=== PATIENT | female | born 1970 | race Two or more races ===

== ENCOUNTER 2022-10-12 19:16 | Observation (INO) | payer OTHER ==
[2022-10-12] MEDS ORDERED: SODIUM CHLORIDE 1,000 ML IV SCH (20:00)
[2022-10-12 20:06] LABS: BASO % 0.7 % (0-2.0); EOS % 0.3 % (0-4.5); HEMATOCRIT 38.2 % (32.4-45.2); HEMOGLOBIN 12.5 GM/dL (10.7-15.3); LYMPH % 38.7 % (8-40); MCH 25.4 pg (25.7-33.7); MCHC 32.7 g/dl (32.0-36.0); MEAN CELL VOLUME 77.5 fl (80-96); MEAN PLT VOLUME 8.2 fl (7.5-11.1); MONO % 6.9 % (3.8-10.2); NEUT % 53.4 % (42.8-82.8); PLATELET COUNT 285 10^3/uL (134-434); RBC 4.93 M/mm3 (3.60-5.2); RDW 13.9 % (11.6-15.6)
[2022-10-12 20:12] LABS: INR 1.13 (0.83-1.09); PROTHROMBIN TIME (PATIENT) 13.1 SEC (9.7-13.0)
[2022-10-12 20:15] LABS: ACTIVATED PTT 37.1 SECONDS (25.2-36.5)
[2022-10-12 20:35] LABS: CHLORIDE 107 mmol/L (98-107); SODIUM 140 mmol/L (136-145)
[2022-10-12 20:38] LABS: ANION GAP 6 MMOL/L (8-16); CO2 27 mmol/L (21-32)
[2022-10-12 20:39] LABS: ALBUMIN 4.2 g/dl (3.4-5.0)
[2022-10-12 20:40] LABS: BLOOD UREA NITROGEN 19.6 mg/dL (7-18); GLUCOSE,RANDOM 114 mg/dL (74-106)
[2022-10-12 20:42] LABS: CREATININE 1.3 mg/dL (0.55-1.3); SGOT/AST 34 U/L (15-37); SGPT/ALT 49 U/L (13-61)
[2022-10-12 20:43] LABS: CHOLESTEROL 174 mg/dL (50-200)
[2022-10-12 20:44] LABS: LDL CHOLESTEROL (ONLY SJRH) 89 mg/dL (5-100); TOT PROT 8.5 g/dl (6.4-8.2); TRIGLYCERIDES 219 mg/dL (0-150)
[2022-10-12 20:45] LABS: BILIRUBIN,TOTAL 0.8 mg/dL (0.2-1)
[2022-10-12 20:46] LABS: ALK PHOS 94 U/L (45-117); HDL CHOLESTEROL 57 mg/dL (40-60)
[2022-10-12 21:47] LABS: EPI CELLS 5 /uL (0-25.1); HYALINE CASTS 3 /uL (0-3.1); URINE APPEARANCE CLEAR; URINE BACTERIA 74 /uL (0-1359); URINE BILIRUBIN NEGATIVE (NEGATIVE); URINE COLOR YELLOW; URINE GLUCOSE (UA) NEGATIVE (NEGATIVE); URINE KETONE NEGATIVE (NEGATIVE); URINE LEUK ESTERASE NEGATIVE (NEGATIVE); URINE NITRITE NEGATIVE (NEGATIVE); URINE PROTEIN NEGATIVE (NEGATIVE); URINE RBC 8 /uL (0-23.9); URINE UROBILINOGEN 0.2 mg/dL (0.2-1.0); URINE WBC 7 /uL (0-25.8)
[2022-10-12] MEDS ORDERED: ATORVASTATIN CA 40 MG TABLET (FP) PO ONE (22:03)
[2022-10-12] MEDS ORDERED: ASPIRIN 81 MG CHEWABLE TABLETS PO ONE ×2 (22:03→23:02)
[2022-10-12] MEDS ORDERED: ATORVASTATIN CA 40 MG TABLET (FP) ONE (22:37)
[2022-10-12] MEDS ORDERED: ASPIRIN 81 MG CHEWABLE TABLETS ONE (22:38)
[2022-10-13] MEDS ORDERED: SODIUM CHLORIDE 1,000 ML IV SCH (00:18)
[2022-10-13 01:20] VITALS: BMI 43.5
[2022-10-13] MEDS: INSULIN SLIDING SCALE (NOVOLOG) 1 VIAL SQ SCH ×3 (06:10→16:29)
[2022-10-13 07:42] LABS: BASO % 0.4 % (0-2.0); EOS % 0.7 % (0-4.5); HEMATOCRIT 35.7 % (32.4-45.2); HEMOGLOBIN 11.5 GM/dL (10.7-15.3); LYMPH % 44.1 % (8-40); MCH 24.8 pg (25.7-33.7); MCHC 32.2 g/dl (32.0-36.0); MEAN CELL VOLUME 76.9 fl (80-96); MEAN PLT VOLUME 8.4 fl (7.5-11.1); MONO % 8.6 % (3.8-10.2); NEUT % 46.2 % (42.8-82.8); PLATELET COUNT 254 10^3/uL (134-434); RBC 4.64 M/mm3 (3.60-5.2); RDW 13.9 % (11.6-15.6); WHITE BLOOD COUNT 7.6 K/mm3 (4.0-10.0)
[2022-10-13 08:13] LABS: CALCIUM 9.6 mg/dL (8.5-10.1)
[2022-10-13 08:14] LABS: ALBUMIN 3.8 g/dl (3.4-5.0); MAGNESIUM 2.3 mg/dL (1.8-2.4)
[2022-10-13 08:15] LABS: BLOOD UREA NITROGEN 20.5 mg/dL (7-18)
[2022-10-13 08:17] LABS: PHOSPHOROUS 4.8 mg/dL (2.5-4.9)
[2022-10-13 08:22] LABS: TOT PROT 7.6 g/dl (6.4-8.2)
[2022-10-13] MEDS: ASPIRIN 81 MG CHEWABLE TABLETS PO SCH (09:33)
[2022-10-13] MEDS: ENOXAPARIN NA (PORCINE) 40 MG/0.4 ML DISP.SYRIN SQ SCH (09:33)
[2022-10-13] MEDS: LOSARTAN POTASSIUM 50 MG TABLET PO SCH (09:33)
[2022-10-13] MEDS: HYDROCHLOROTHIAZIDE 25 MG TABLET (FP) PO SCH (09:33)
[2022-10-13] MEDS: PANTOPRAZOLE 20 MG TABLET PO SCH (09:34)
[2022-10-13] MEDS ORDERED: ATORVASTATIN CA 40 MG TABLET (FP) PO SCH (22:00)
[2022-10-13] MEDS ORDERED: ROSUVASTATIN CA 10 MG TABLET PO SCH (22:00)
[2022-10-14] MEDS: INSULIN SLIDING SCALE (NOVOLOG) 1 VIAL SQ SCH ×3 (06:30→17:05)
[2022-10-14 08:02] LABS: COCAINE, UR NEGATIVE (NEGATIVE); OPIATES, URI NEGATIVE (NEGATIVE)
[2022-10-14 08:14] LABS: METHADONE, UR NEGATIVE (NEGATIVE); PHENCYCLIDINE,URINE NEGATIVE (NEGATIVE); URINE AMPHETAMINES NEGATIVE (NEGATIVE); URINE BARBITURATES NEGATIVE (NEGATIVE); URINE BENZODIAZEPINES NEGATIVE (NEGATIVE)
[2022-10-14] MEDS: HYDROCHLOROTHIAZIDE 25 MG TABLET (FP) PO SCH (09:25)
[2022-10-14] MEDS: LOSARTAN POTASSIUM 50 MG TABLET PO SCH (09:25)
[2022-10-14] MEDS: ASPIRIN 81 MG CHEWABLE TABLETS PO SCH (09:25)
[2022-10-14] MEDS: PANTOPRAZOLE 20 MG TABLET PO SCH (09:25)
[2022-10-14] MEDS: ENOXAPARIN NA (PORCINE) 40 MG/0.4 ML DISP.SYRIN SQ SCH (09:25)
[2022-10-14 15:03] VITALS: BP 137/72; PULSE 82; RESP 20; TEMP 98.4
== END 2022-10-14 18:25 | disposition home or self-care (01) ==
LOC: JER 19:16 → JERBED 22:04 → J4W 10-13 00:38
PROVIDERS: ADMIT Internal Medicine; ATTEND Internal Medicine
PROC: 3E023GC Introduction of Other Therapeutic Substance into Muscle, Percutaneous Approach (ICD-10-PCS; principal; 2022-10-12)
PROC: 3E0337Z Introduction of Electrolytic and Water Balance Substance into Peripheral Vein, Percutaneous Approach (ICD-10-PCS; 2022-10-12)
DX: R55 Syncope and collapse (principal); E11.9 Type 2 diabetes mellitus without complications; E78.5 Hyperlipidemia, unspecified; I10 Essential (primary) hypertension; Z87.891 Personal history of nicotine dependence; G81.90 Hemiplegia, unspecified affecting unspecified side
CPT/HCPCS: 0241U-QW; 36415; 70450-TC; 70551-TC; 71045-TC-FY; 80053; 80061; 80307; 81003; 82550; 82553; 82962; 83036; 83735; 84100; 84439; 84443; 84484; 85025; 85610; 85730; 86850; 86900; 86901; 87086; 93005; 93010; 93306-TC; 93880-TC; 96360; 96372; 97116-GP; 99285-25; G0378